=== PATIENT | female | born 2000 | race Caucasian/White ===

== ENCOUNTER 2018-10-15 19:06 | Inpatient (IN) | payer BC ==
[2018-10-15] MEDS ORDERED: ONDANSETRON 4 MG INJ IV (20:00)
[2018-10-15] MEDS ORDERED: NACL 0.9% 3 ML SYG IV (20:00)
[2018-10-15] MEDS ORDERED: ACETAMINOPHEN 325 MG TAB PO (20:00)
[2018-10-15] MEDS ORDERED: DOCUSATE SODIUM 100 MG CAP PO (20:00)
[2018-10-15] MEDS ORDERED: BISACODYL (EC) 5 MG TAB PO (20:00)
[2018-10-15] MEDS: HYDROmorphONE 0.5 MG/0.5 ML SYG IV (21:04)
[2018-10-15] MEDS: PIPER-TAZO 3.375 GM IV (PMX) 100 ML IVPB (21:17)
[2018-10-15] MEDS: SOD CHLORIDE 0.9% 1,000 ML IV (21:17)
[2018-10-15 23:52] LABS: ADD MAN DIFF? NO
[2018-10-15 23:53] LABS: WHITE BLOOD COUNT 7.1 10^3/ul (4.8-10.8)
[2018-10-15 23:53] LABS: BASOPHIL # 0.1 10^3/ul (0.0-0.1); BASOPHILS % 0.7 % (0.0-2.0); EOSINOPHILS # 0.3 10^3/ul (0.0-0.5); EOSINOPHILS % 3.5 % (0.0-7.0); HEMOGLOBIN 11.3 g/dl (12.0-16.0); LYMPHOCYTES # 2.1 10^3/ul (0.8-2.9); LYMPHOCYTES % 29.5 % (18.0-55.0); MEAN CORPUSCULAR HEMOGLOBIN 26.3 pg (29.0-33.0); MEAN CORPUSCULAR HGB CONC 32.3 g/dl (32.0-37.0); MEAN CORPUSCULAR VOLUME 81.6 fl (72.0-104.0); MEAN PLATELET VOLUME 10.8 fl (7.4-10.4); MONOCYTE # 0.7 10^3/ul (0.3-0.9); MONOCYTES % 10.2 % (0.0-13.0); NEUTROPHIL # 3.9 10^3/ul (1.6-7.5); NEUTROPHILS % 55.8 % (30.0-74.0); PLATELET COUNT 276 10^3/UL (140-415); RED BLOOD COUNT 4.29 10^6/ul (4.20-5.40); RED CELL DISTRIBUTION WIDTH 14.9 % (11.5-14.5)
[2018-10-16 00:12] LABS: ALANINE AMINOTRANSFERASE 327 IU/L (13-69); ALBUMIN 3.6 g/dl (3.3-4.9); ALBUMIN/GLOBULIN RATIO 1.09; ALKALINE PHOSPHATASE 111 IU/L (42-121); ANION GAP 10 (5-13); ASPARTATE AMINO TRANSFERASE 102 IU/L (15-46); BILIRUBIN,INDIRECT 0.9 mg/dl (0-1.1); BILIRUBIN,TOTAL 1.2 mg/dl (0.2-1.3); BLOOD UREA NITROGEN 5 mg/dl (7-20); CALCIUM 8.4 mg/dl (8.4-10.2); CARBON DIOXIDE 26 mmol/L (21-31); CHLORIDE 106 mmol/L (97-110); CREATININE 0.65 mg/dl (0.44-1.00); Estimated GFR > 60 mL/min (>60); GLUCOSE 104 mg/dl (70-220); POTASSIUM 3.6 mmol/L (3.5-5.1); SODIUM 142 mmol/L (135-144); TOTAL PROTEIN 6.9 g/dl (6.1-8.1)
[2018-10-16] MEDS: PIPER-TAZO 3.375 GM IV (PMX) 100 ML IVPB ×4 (01:30→18:24)
[2018-10-16] MEDS: HYDROmorphONE 0.5 MG/0.5 ML SYG IV ×3 (02:42→20:00)
[2018-10-16] MEDS: SOD CHLORIDE 0.9% 1,000 ML IV ×2 (07:00→12:21)
[2018-10-16 07:03] LABS: ADD MAN DIFF? NO
[2018-10-16 07:07] LABS: BASOPHIL # 0.1 10^3/ul (0.0-0.1); BASOPHILS % 0.7 % (0.0-2.0); EOSINOPHILS # 0.2 10^3/ul (0.0-0.5); EOSINOPHILS % 3.2 % (0.0-7.0); HEMATOCRIT 38.7 % (37.0-47.0); LYMPHOCYTES # 2.2 10^3/ul (0.8-2.9); LYMPHOCYTES % 30.5 % (18.0-55.0); MEAN CORPUSCULAR VOLUME 83.8 fl (72.0-104.0); MEAN PLATELET VOLUME 11.1 fl (7.4-10.4); MONOCYTE # 0.7 10^3/ul (0.3-0.9); MONOCYTES % 10.2 % (0.0-13.0); NEUTROPHILS % 55.1 % (30.0-74.0); PLATELET COUNT 299 10^3/UL (140-415); RED BLOOD COUNT 4.62 10^6/ul (4.20-5.40); RED CELL DISTRIBUTION WIDTH 15.1 % (11.5-14.5)
[2018-10-16 07:07] LABS: WHITE BLOOD COUNT 7.2 10^3/ul (4.8-10.8)
[2018-10-16 07:20] LABS: INR 0.98; PROTIME 13.1 Sec (11.9-14.9)
[2018-10-16 07:21] LABS: PARTIAL THROMBOPLASTIN TIME 28.8 Sec (23.0-35.0)
[2018-10-16 07:31] LABS: ALANINE AMINOTRANSFERASE 297 IU/L (13-69); ALBUMIN 3.5 g/dl (3.3-4.9); ALBUMIN/GLOBULIN RATIO 1.29; ALKALINE PHOSPHATASE 107 IU/L (42-121); ANION GAP 7 (5-13); ASPARTATE AMINO TRANSFERASE 88 IU/L (15-46); BILIRUBIN,INDIRECT 0.8 mg/dl (0-1.1); BLOOD UREA NITROGEN 6 mg/dl (7-20); CALCIUM 8.6 mg/dl (8.4-10.2); CARBON DIOXIDE 27 mmol/L (21-31); CHLORIDE 108 mmol/L (97-110); CHOLESTEROL 140 mg/dl (100-200); CREATININE 0.72 mg/dl (0.44-1.00); Estimated GFR > 60 mL/min (>60); GLUCOSE 93 mg/dl (70-220); HDL CHOLESTEROL 46 mg/dl (33-83); LDL CHOLESTEROL,CALCULATED 81 mg/dl; SODIUM 142 mmol/L (135-144); TOTAL PROTEIN 6.2 g/dl (6.1-8.1); TRIGLYCERIDES 67 mg/dl (0-149)
[2018-10-16] MEDS: FAMOTIDINE 20 MG TAB PO ×2 (09:08→20:00)
[2018-10-16 09:25] LABS: HEMOGLOBIN A1C 5.1 % (0-5.9)
[2018-10-16] MEDS ORDERED: GLYCOPYRROLATE 0.4 MG INJ (15:34)
[2018-10-16] MEDS ORDERED: PROPOFOL 20 ML (15:34)
[2018-10-16] MEDS ORDERED: ROCURONIUM 50 MG INJ (15:34)
[2018-10-16] MEDS ORDERED: LIDOCAINE 2% (SDV) 5 ML INJ (15:34)
[2018-10-16] MEDS ORDERED: NEOSTIGMINE 3 MG/3 ML SYRINGE (15:34)
[2018-10-16] MEDS ORDERED: SUCCINYLCHOLINE CHLORIDE 100 MG/5 ML SYG IV (15:34)
[2018-10-16] MEDS ORDERED: GLUCAGON 1 MG INJ (16:15)
[2018-10-16] MEDS ORDERED: EPINEPHrine 0.1 MG/ML SYG (16:26)
[2018-10-16] MEDS ORDERED: FENTAnyl 50 MCG/ML VIAL IV ×2 (16:30)
[2018-10-16] MEDS ORDERED: ONDANSETRON 4 MG INJ IV (16:30)
[2018-10-16] MEDS ORDERED: MEPERIDINE 25 MG INJ IV (16:30)
[2018-10-16] MEDS ORDERED: DIPHENHYDRAMINE 50 MG INJ IV (16:30)
[2018-10-16] MEDS ORDERED: MIDAZOLAM 1 MG/ML 2 ML INJ IV (16:30)
[2018-10-16] MEDS ORDERED: HYDROmorphONE 1 MG/5 ML IV SYRINGE IV ×3 (16:30)
[2018-10-16] MEDS ORDERED: METOCLOPRAMIDE 10 MG INJ IV (16:30)
[2018-10-16] MEDS: FENTAnyl 50 MCG/ML VIAL IV (17:30)
[2018-10-16] MEDS: INDOMETHACIN 50 MG SUPP PR (19:00)
[2018-10-17] MEDS: PIPER-TAZO 3.375 GM IV (PMX) 100 ML IVPB ×5 (00:26→23:47)
[2018-10-17] MEDS: SOD CHLORIDE 0.9% 1,000 ML IV (03:15)
[2018-10-17] MEDS: HYDROmorphONE 0.5 MG/0.5 ML SYG IV ×5 (04:02→23:51)
[2018-10-17 07:24] LABS: ADD MAN DIFF? NO
[2018-10-17 07:34] LABS: WHITE BLOOD COUNT 8.8 10^3/ul (4.8-10.8)
[2018-10-17 07:34] LABS: BASOPHIL # 0.1 10^3/ul (0.0-0.1); BASOPHILS % 0.6 % (0.0-2.0); EOSINOPHILS # 0.2 10^3/ul (0.0-0.5); EOSINOPHILS % 2.4 % (0.0-7.0); HEMATOCRIT 37.9 % (37.0-47.0); LYMPHOCYTES # 1.9 10^3/ul (0.8-2.9); LYMPHOCYTES % 21.7 % (18.0-55.0); MEAN CORPUSCULAR HEMOGLOBIN 26.4 pg (29.0-33.0); MEAN CORPUSCULAR HGB CONC 31.7 g/dl (32.0-37.0); MEAN CORPUSCULAR VOLUME 83.5 fl (72.0-104.0); MONOCYTE # 0.6 10^3/ul (0.3-0.9); MONOCYTES % 7.2 % (0.0-13.0); NEUTROPHILS % 67.8 % (30.0-74.0); PLATELET COUNT 267 10^3/UL (140-415); RED BLOOD COUNT 4.54 10^6/ul (4.20-5.40); RED CELL DISTRIBUTION WIDTH 15.1 % (11.5-14.5)
[2018-10-17 07:51] LABS: PHOSPHORUS 3.7 mg/dl (2.5-4.9)
[2018-10-17 07:51] LABS: MAGNESIUM 1.6 mg/dl (1.7-2.5)
[2018-10-17 07:54] LABS: ALANINE AMINOTRANSFERASE 219 IU/L (13-69); ALBUMIN 3.5 g/dl (3.3-4.9); ALBUMIN/GLOBULIN RATIO 1.12; ALKALINE PHOSPHATASE 107 IU/L (42-121); ANION GAP 9 (5-13); ASPARTATE AMINO TRANSFERASE 54 IU/L (15-46); BILIRUBIN,INDIRECT 0.7 mg/dl (0-1.1); BILIRUBIN,TOTAL 0.7 mg/dl (0.2-1.3); BLOOD UREA NITROGEN 4 mg/dl (7-20); CALCIUM 8.8 mg/dl (8.4-10.2); CARBON DIOXIDE 26 mmol/L (21-31); CHLORIDE 109 mmol/L (97-110); CREATININE 0.67 mg/dl (0.44-1.00); Estimated GFR > 60 mL/min (>60); GLUCOSE 90 mg/dl (70-220); POTASSIUM 4.2 mmol/L (3.5-5.1); SODIUM 144 mmol/L (135-144); TOTAL PROTEIN 6.6 g/dl (6.1-8.1)
[2018-10-17] MEDS: FAMOTIDINE 20 MG TAB PO ×2 (08:38→19:53)
[2018-10-17] MEDS: MAGNESIUM SULFATE 2 GM/50 ML 50 ML IVPB (11:14)
[2018-10-17] MEDS ORDERED: SUCCINYLCHOLINE CHLORIDE 100 MG/5 ML SYG IV (15:13)
[2018-10-17] MEDS ORDERED: ROPIVACAINE 0.5 % 30 ML VIAL (15:14)
[2018-10-17] MEDS ORDERED: PROPOFOL 20 ML (15:26)
[2018-10-17] MEDS ORDERED: ROCURONIUM 50 MG INJ (15:26)
[2018-10-17] MEDS ORDERED: ONDANSETRON 4 MG INJ (15:26)
[2018-10-17] MEDS ORDERED: KETOROLAC 30 MG INJ (15:26)
[2018-10-17] MEDS ORDERED: METOCLOPRAMIDE 10 MG INJ (15:26)
[2018-10-17] MEDS ORDERED: NEOSTIGMINE 3 MG/3 ML SYRINGE (15:27)
[2018-10-17] MEDS ORDERED: GLYCOPYRROLATE 0.4 MG INJ (15:27)
[2018-10-17] MEDS: BUPIVACAINE 0.5%/EPI (SDV) 30 ML INJ (15:28)
[2018-10-17] MEDS: LIDOCAINE 1% (MPF) 30 ML INJ (15:28)
[2018-10-17] MEDS ORDERED: PHENYLephrine (100 MCG/ML) 10ML SYG (15:32)
[2018-10-17] MEDS ORDERED: DIPHENHYDRAMINE 50 MG INJ IV (16:00)
[2018-10-17] MEDS ORDERED: KETOROLAC 30 MG INJ IV (16:00)
[2018-10-17] MEDS ORDERED: ACETAMINOPHEN 325 MG TAB PO (16:00)
[2018-10-17] MEDS ORDERED: ONDANSETRON 4 MG INJ IV (16:00)
[2018-10-17] MEDS ORDERED: METOCLOPRAMIDE 10 MG INJ IV (16:00)
[2018-10-17] MEDS ORDERED: morphine 2 MG INJ IV (16:00)
[2018-10-17] MEDS ORDERED: FENTAnyl 50 MCG/ML VIAL (16:05)
[2018-10-17] MEDS: D5W-0.45 NACL + KCL 20 MEQ 1,000 ML IV (19:53)
[2018-10-18] MEDS: PIPER-TAZO 3.375 GM IV (PMX) 100 ML IVPB ×2 (05:19→11:47)
[2018-10-18] MEDS: D5W-0.45 NACL + KCL 20 MEQ 1,000 ML IV ×2 (05:19→11:57)
[2018-10-18] MEDS: HYDROCODONE/APAP (5/325) TAB PO ×2 (05:20→11:47)
[2018-10-18 06:21] LABS: ADD MAN DIFF? NO
[2018-10-18 06:27] LABS: WHITE BLOOD COUNT 7.7 10^3/ul (4.8-10.8)
[2018-10-18 06:27] LABS: BASOPHIL # 0.1 10^3/ul (0.0-0.1); BASOPHILS % 0.7 % (0.0-2.0); EOSINOPHILS # 0.3 10^3/ul (0.0-0.5); EOSINOPHILS % 3.8 % (0.0-7.0); HEMATOCRIT 35.3 % (37.0-47.0); HEMOGLOBIN 11.3 g/dl (12.0-16.0); LYMPHOCYTES % 26.5 % (18.0-55.0); MEAN CORPUSCULAR HEMOGLOBIN 26.3 pg (29.0-33.0); MEAN CORPUSCULAR VOLUME 82.3 fl (72.0-104.0); MEAN PLATELET VOLUME 10.9 fl (7.4-10.4); MONOCYTE # 0.6 10^3/ul (0.3-0.9); NEUTROPHIL # 4.7 10^3/ul (1.6-7.5); NEUTROPHILS % 60.7 % (30.0-74.0); PLATELET COUNT 275 10^3/UL (140-415); RED BLOOD COUNT 4.29 10^6/ul (4.20-5.40); RED CELL DISTRIBUTION WIDTH 15.1 % (11.5-14.5)
[2018-10-18 07:01] LABS: PHOSPHORUS 3.8 mg/dl (2.5-4.9)
[2018-10-18 07:01] LABS: MAGNESIUM 1.7 mg/dl (1.7-2.5)
[2018-10-18 07:02] LABS: ALANINE AMINOTRANSFERASE 180 IU/L (13-69); ALBUMIN 3.6 g/dl (3.3-4.9); ALBUMIN/GLOBULIN RATIO 1.09; ALKALINE PHOSPHATASE 102 IU/L (42-121); ANION GAP 8 (5-13); ASPARTATE AMINO TRANSFERASE 45 IU/L (15-46); BILIRUBIN,INDIRECT 0.5 mg/dl (0-1.1); BILIRUBIN,TOTAL 0.5 mg/dl (0.2-1.3); BLOOD UREA NITROGEN 4 mg/dl (7-20); CALCIUM 9.3 mg/dl (8.4-10.2); CARBON DIOXIDE 28 mmol/L (21-31); CHLORIDE 106 mmol/L (97-110); CREATININE 0.56 mg/dl (0.44-1.00); Estimated GFR > 60 mL/min (>60); GLUCOSE 103 mg/dl (70-220); POTASSIUM 3.9 mmol/L (3.5-5.1); SODIUM 142 mmol/L (135-144); TOTAL PROTEIN 6.9 g/dl (6.1-8.1)
[2018-10-18] MEDS: FAMOTIDINE 20 MG TAB PO (08:38)
[2018-10-18] MEDS ORDERED: IBUPROFEN 600 MG TAB PO (16:00)
== END 2018-10-18 13:36 | disposition home or self-care (01) | DRG 418 ==
LOC: TEL 19:06 → PP2 10-16 12:06
PROC: 0FCC8ZZ Extirpation of Matter from Ampulla of Vater, Via Natural or Artificial Opening Endoscopic (ICD-10-PCS; 2018-10-16 15:30)
PROC: 0F798DZ Dilation of Common Bile Duct with Intraluminal Device, Via Natural or Artificial Opening Endoscopic (ICD-10-PCS; 2018-10-16 15:30)
PROC: 0W3P8ZZ Control Bleeding in Gastrointestinal Tract, Via Natural or Artificial Opening Endoscopic (ICD-10-PCS; 2018-10-16 15:30)
PROC: 0FT44ZZ Resection of Gallbladder, Percutaneous Endoscopic Approach (ICD-10-PCS; principal; 2018-10-16 15:36)
PROC: BF13YZZ Fluoroscopy of Gallbladder and Bile Ducts using Other Contrast (ICD-10-PCS; 2018-10-16 15:36)
DX: K80.65 Calculus of gallbladder and bile duct with chronic cholecystitis with obstruction (principal); K91.71 Accidental puncture and laceration of a digestive system organ or structure during a digestive system procedure; E66.9 Obesity, unspecified; Y83.8 Other surgical procedures as the cause of abnormal reaction of the patient, or of later complication, without mention of misadventure at the time of the procedure; Y92.238 Other place in hospital as the place of occurrence of the external cause
CPT/HCPCS: 74181; 74330; 80053; 80061; 83036; 83735; 84100; 84443; 84703; 85025; 85610; 85730; 88304